=== PATIENT | male | born 1930 | race Caucasian/White ===

== ENCOUNTER → 2017-01-08 | Outpatient (CLI) | payer MEDICARE ==
[~2017-01-08] MED LIST: /METO25TAB PO; LANO0.1211 PO; LIPI20TA PO; SULF400T PO; TOPR25TA PO; WARF1TAB35 PO; WARF5VL PO; WARF6TAB14 PO
--- NOTE | 2017-01-08 11:43 | REP ---
Clinical: Pain with recent fall. Technique: AP and lateral views of the left knee. Findings: Moderate tricompartmental osteoarthritic degenerative changes are appreciated along with mild prepatellar soft tissue swelling. No obvious acute fracture or dislocation. The visualized distal femoral shaft demonstrates posterior cortical thickening with irregular scalloped appearance along the internal surface of the cortex and adjacent irregular sclerotic changes and heterogeneity to the adjacent medullary cavity without discrete, definable borders. While these findings may represent sequelae of old injury as well as old osteomyelitis, and underlying active process including metastatic disease cannot be excluded. Correlation with physical examination and history is recommended. Consideration for further workup may include bone scan and radiographic bone survey as first line of imaging. Impression: 1. Tricompartmental degenerative changes and prepatellar swelling without acute fracture dislocation. 2. Irregular appearance to the distal femoral metadiaphysis as described above. Differential diagnosis includes but is not limited to metastatic disease and further workup should be considered. Signed by Ruben Delarosa MD 01/08/2017 11:35 A
== END ==
LOC: M ADAMS 10:54
PROVIDERS: ATTEND Physician Assistant
DX: S86.912A Strain of unspecified muscle(s) and tendon(s) at lower leg level, left leg, initial encounter (principal); M17.12 Unilateral primary osteoarthritis, left knee; R93.8 Abnormal findings on diagnostic imaging of other specified body structures; W19.XXXA Unspecified fall, initial encounter; Y92.9 Unspecified place or not applicable; Y93.9 Activity, unspecified; Y99.9 Unspecified external cause status
CPT/HCPCS: 73560; G0463

== ENCOUNTER → 2017-01-31 | Outpatient (CLI) | payer MEDICARE ==
--- NOTE | 2017-01-31 15:09 | REP ---
MRI STUDY OF THE LEFT KNEE WITHOUT CONTRAST: HISTORY: Left femur abnormality on radiographs January 08, 2017. MRI FINDINGS: There is osteoarthritis at the knee with medial joint space narrowing and cartilage loss. There is a degenerative tear of the medial meniscus, and there is a large subcortical cyst in the medial aspect of the tibial plateau as seen on radiographs, measuring up to 2.1 x 1.5 x 1.9 cm. There is another subcortical cyst in the posterior tibial plateau beneath the tibial spines. There is patellar articular spurring, and some mild femoral spurring is seen laterally. The radiographically visible lesion in the distal femur corresponds to a well-circumscribed 3.8 x 1.9 x 2.7 cm distal femoral diaphyseal lesion. This is characterized by heterogeneous signal intensity with areas of high T2 and low T2 signal on T2-weighted scans and low signal on T1-weighted scans. The lesion is most compatible with enchondroma but also possible is an old nonossifying fibroma. There is no adjacent edema or periosteal reaction. IMPRESSION: 1. A 3.8 cm nonaggressive benign-appearing lesion in the distal femur consistent with enchondroma versus nonossifying fibroma. 2. Osteoarthritis of the knee most pronounced in the medial compartment with fairly large subcortical cyst in the medial tibial plateau. There are degenerative tears of the medial and lateral menisci. Signed by Jeff Mast MD 01/31/2017 04:47 P
== END ==
LOC: M RAD 10:52
PROVIDERS: ATTEND Physician Assistant
DX: Q74.2 Other congenital malformations of lower limb(s), including pelvic girdle (principal); M17.12 Unilateral primary osteoarthritis, left knee; M85.462 Solitary bone cyst, left tibia and fibula

== ENCOUNTER → 2017-02-05 | Outpatient (REF) | payer MEDICARE ==
[2017-02-05 21:02] LABS: PERCENT SATURATION 20.1 % (19.7-37.4)
== END ==
LOC: M SFHCADAM 15:44
PROVIDERS: ATTEND Physician Assistant
DX: D64.9 Anemia, unspecified (principal)
CPT/HCPCS: 82607; 82728; 82746; 83550; G0463

== ENCOUNTER → 2017-08-07 | Outpatient (REF) | payer MEDICARE | LOC: M LAB REF 09:22 | PROVIDERS: ATTEND Physician Assistant Medical | DX: N39.0 Urinary tract infection, site not specified (principal) ==

== ENCOUNTER → 2017-11-05 | Outpatient (REF) | payer MEDICARE ==
[2017-11-05 21:24] LABS: HEMATOCRIT 38.7 % (42.0-52.0); HEMOGLOBIN 12.7 g/dl (14.0-18.0); MEAN CORPUSCULAR HEMOGLOBIN 31.8 pg (27.0-33.0); MEAN CORPUSCULAR HGB CONC 32.8 g/dl (32.0-36.5); MEAN CORPUSCULAR VOLUME 96.8 fl (80.0-96.0); PLATELET COUNT, AUTOMATED 180 10^3/uL (150-450); RED CELL DISTRIBUTION WIDTH 13.2 % (11.5-14.5); WHITE BLOOD COUNT 5.2 10^3/uL (4.0-10.0)
[2017-11-05 21:52] LABS: ALBUMIN 3.6 GM/DL (3.2-5.2); ALBUMIN/GLOBULIN RATIO 1.13 (1.00-1.93); ALKALINE PHOSPHATASE 103 U/L (45-117); ALT/SGPT 20 U/L (12-78); ANION GAP 6 MEQ/L (8-16); AST/SGOT 19 U/L (7-37); BILIRUBIN,DIRECT 0.2 MG/DL (0.0-0.2); BILIRUBIN,TOTAL 0.6 MG/DL (0.2-1.0); BLOOD UREA NITROGEN 15 MG/DL (7-18); CALCIUM LEVEL 8.2 MG/DL (8.8-10.2); CARBON DIOXIDE LEVEL 29 MEQ/L (21-32); CHLORIDE LEVEL 107 MEQ/L (98-107); CHOLESTEROL LEVEL 117 MG/DL (<200); CREATININE FOR GFR 1.26 MG/DL (0.70-1.30); DIGOXIN LEVEL 0.3 NG/ML (0.5-2.0); GLOMERULAR FILTRATION RATE 57.8 (>35); GLUCOSE, FASTING 94 MG/DL (70-100); HDL CHOLESTEROL 43 MG/DL (>40); LDL CHOLESTEROL 30.2 MG/DL (<100); NON-HDL-C 74 MG/DL; POTASSIUM SERUM 4.3 MEQ/L (3.5-5.1); SODIUM LEVEL 142 MEQ/L (136-145); TOTAL PROTEIN 6.8 GM/DL (6.4-8.2); TRIGLYCERIDES LEVEL 219 MG/DL (<150)
== END ==
LOC: M LABDRWAD 20:56
DX: I10 Essential (primary) hypertension (principal); E78.5 Hyperlipidemia, unspecified; I48.0 Paroxysmal atrial fibrillation
CPT/HCPCS: 80162

== ENCOUNTER → 2018-04-12 | Outpatient (CLI) | payer MEDICARE | LOC: M ADAMS 15:05 | DX: M25.572 Pain in left ankle and joints of left foot (principal) | CPT/HCPCS: 73610 ==

== ENCOUNTER → 2018-12-09 | Outpatient (REF) | payer MEDICARE ==
[2018-12-09 19:34] LABS: HEMATOCRIT 43.8 % (42.0-52.0); HEMOGLOBIN 14.2 g/dl (13.5-17.5); MEAN CORPUSCULAR HEMOGLOBIN 31.7 pg (27.0-33.0); MEAN CORPUSCULAR HGB CONC 32.4 g/dl (32.0-36.5); MEAN CORPUSCULAR VOLUME 97.8 fl (80.0-96.0); PLATELET COUNT, AUTOMATED 186 10^3/uL (150-450); RED BLOOD COUNT 4.48 10^6/uL (4.30-6.10); WHITE BLOOD COUNT 5.5 10^3/uL (4.0-10.0)
[2018-12-09 20:12] LABS: ALBUMIN 4.2 GM/DL (3.2-5.2); BILIRUBIN,TOTAL 0.8 MG/DL (0.2-1.0); CALCIUM LEVEL 8.8 MG/DL (8.8-10.2); CREATININE FOR GFR 1.34 MG/DL (0.70-1.30); GLOMERULAR FILTRATION RATE 53.7 (>35); POTASSIUM SERUM 4.4 MEQ/L (3.5-5.1); TOTAL PROTEIN 7.8 GM/DL (6.4-8.2)
== END ==
LOC: M SFHCADAM 14:23
PROVIDERS: ATTEND Physician Assistant
DX: I48.2 Chronic atrial fibrillation (principal); I10 Essential (primary) hypertension; Z23 Encounter for immunization
CPT/HCPCS: 80053; 85027; 90732; G0009; G0463

== ENCOUNTER → 2019-03-30 | Outpatient (REF) | payer MEDICARE ==
[~2019-03-30] MED LIST changes: -/METO25TAB PO; +METO-1 PO; +METO1TAB87 PO; -TOPR25TA PO
== END ==
LOC: M LAB REF 12:17
PROVIDERS: ATTEND Physician Assistant
DX: N39.0 Urinary tract infection, site not specified (principal)

== ENCOUNTER → 2019-05-22 | Outpatient (REF) | payer MEDICARE ==
[2019-05-22 14:09] LABS: APPEARANCE, URINE TURBID (CLEAR); BACTERIA, URINE AUTO 2+ (NEGATIVE); BILIRUBIN, URINE AUTO NEGATIVE (NEGATIVE); BLOOD, URINE BLOOD 1+ (NEGATIVE); COLOR, URINE YELLOW (YELLOW); GLUCOSE, URINE (UA) AUTO NEGATIVE (NEGATIVE); KETONE, URINE AUTO NEGATIVE (NEGATIVE); LEUKOCYTE ESTERASE, URINE AUTO 3+ (NEGATIVE); MUCUS, URINE SMALL (NEGATIVE); NITRITE, URINE AUTO POSITIVE (NEGATIVE); PROTEIN, URINE AUTO 1+ mg/dL (NEGATIVE); RBC, URINE AUTO 37 /HPF (0-3); SPECIFIC GRAVITY URINE AUTO 1.013 (1.002-1.035); SQUAMOUS EPITHELIAL CELL UR AU 1 /HPF (0-6); UROBILINOGEN, URINE AUTO 0.2 mg/dL (0.0-2.0); WBC, URINE AUTO TNTC /HPF (0-3)
== END ==
LOC: M SMT 13:27
PROVIDERS: ATTEND Nurse Practitioner Family
DX: R30.0 Dysuria (principal)
CPT/HCPCS: 51798; 81001; 87088; G0463

== ENCOUNTER → 2019-07-09 | Outpatient (REF) | payer MEDICARE ==
[2019-07-09 19:33] LABS: HEMATOCRIT 40.4 % (42.0-52.0); HEMOGLOBIN 13.1 g/dl (13.5-17.5); MEAN CORPUSCULAR HEMOGLOBIN 32.5 pg (27.0-33.0); MEAN CORPUSCULAR HGB CONC 32.4 g/dl (32.0-36.5); MEAN CORPUSCULAR VOLUME 100.2 fl (80.0-96.0); PLATELET COUNT, AUTOMATED 132 10^3/uL (150-450); RED BLOOD COUNT 4.03 10^6/uL (4.30-6.10)
[2019-07-09 19:40] LABS: ALBUMIN 3.8 GM/DL (3.2-5.2); BILIRUBIN,TOTAL 0.4 MG/DL (0.2-1.0); CREATININE FOR GFR 1.36 MG/DL (0.70-1.30); GLOMERULAR FILTRATION RATE 52.6 (>35); POTASSIUM SERUM 4.4 MEQ/L (3.5-5.1); TOTAL PROTEIN 7.4 GM/DL (6.4-8.2)
== END ==
LOC: M SFHCADAM 16:08
PROVIDERS: ATTEND Physician Assistant
DX: I48.2 Chronic atrial fibrillation (principal); I10 Essential (primary) hypertension
CPT/HCPCS: 80053; 85027; G0463

== ENCOUNTER → 2019-11-03 | Outpatient (CLI) | payer MEDICARE ==
--- NOTE | 2019-11-03 14:10 | REP ---
KUB: Single view. History: Lower abdomen pain. Findings: There are a few air-filled loops of small bowel in the right mid abdomen. There is sigmoid colon gas without dilation. There is some air in the right colon and transverse colon. There are degenerative changes in the lumbar spine which are fairly advanced. Impression: Scattered small and large bowel loops of nondilated intestine. There is no visible air in the rectum. Nonspecific. 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 Electronically Signed by Jeff Mast MD 11/03/2019 02:02 P
== END ==
LOC: M ADAMS 13:36
PROVIDERS: ATTEND Nurse Practitioner Family
DX: R10.30 Lower abdominal pain, unspecified (principal)

== ENCOUNTER → 2019-12-08 | Outpatient (REF) | payer MEDICARE ==
[2019-12-08 20:44] LABS: HEMATOCRIT 38.8 % (42.0-52.0); HEMOGLOBIN 12.8 g/dl (13.5-17.5); MEAN CORPUSCULAR HEMOGLOBIN 32.1 pg (27.0-33.0); MEAN CORPUSCULAR VOLUME 97.2 fl (80.0-96.0); PLATELET COUNT, AUTOMATED 139 10^3/uL (150-450); RED BLOOD COUNT 3.99 10^6/uL (4.30-6.10); WHITE BLOOD COUNT 5.4 10^3/uL (4.0-10.0)
[2019-12-08 21:06] LABS: ALBUMIN 3.8 GM/DL (3.2-5.2); BILIRUBIN,TOTAL 0.6 MG/DL (0.2-1.0); CALCIUM LEVEL 8.5 MG/DL (8.8-10.2); CREATININE FOR GFR 1.25 MG/DL (0.70-1.30); FREE T4 1.09 NG/DL (0.76-1.46); POTASSIUM SERUM 4.4 MEQ/L (3.5-5.1); THYROID STIMULATING HORMONE 1.48 uIU/ML (0.358-3.740); TOTAL PROTEIN 7.3 GM/DL (6.4-8.2)
== END ==
LOC: M SFHCADAM 15:42
PROVIDERS: ATTEND Physician Assistant
DX: K59.00 Constipation, unspecified (principal); I48.20 Chronic atrial fibrillation, unspecified; N40.0 Benign prostatic hyperplasia without lower urinary tract symptoms; I10 Essential (primary) hypertension
CPT/HCPCS: 80053; 84439; 84443; 85027; G0463

== ENCOUNTER → 2020-07-28 | Outpatient (REF) | payer MEDICARE ==
[2020-07-28 17:14] LABS: PERCENT SATURATION 22.3 % (19.7-50.0)
[2020-07-28 17:29] LABS: FOLATE 8.7 NG/ML
== END ==
LOC: M SFHCADAM 12:27
PROVIDERS: ATTEND Physician Assistant
DX: D64.9 Anemia, unspecified (principal)